=== PATIENT | male | born 1995 | race Caucasian/White ===

== ENCOUNTER 2016-08-11 00:39 | Emergency (ER) | payer OTHER ==
--- NOTE | 2016-08-11 00:42 | EDPHY ---
H & P HPI/ROS: HPI CHIEF COMPLAINT: Nausea vomiting diarrhea HISTORY OF PRESENT ILLNESS: This patient is a very pleasant 20-year-old male, no significant medical history, only surgical history is for wisdom to the [facility] emergency room by private vehicle with his father for sudden onset nausea vomiting and diarrhea. Patient states that he lives in [place] he is in the [employer], he was visiting his parents up in [place]. States around 830 this evening he developed sudden-onset nausea vomiting and watery diarrhea. He tells me that his vomiting and diarrhea is not bloody, it is mostly loose watery, no black stools. He denies any abdominal pain, denies fever. States he had steak and potatoes for dinner tonight as well as a salad his family had the same thing and nobody else is sick. He tells me vomited over 12 times and multiple episodes of watery loose diarrhea.Patient tells me that he initially vomited his steak and potatoes, however now it is yellow secretions no blood. Past Medical History: No significant medical history Past Surgical History: Surgical history skin for wisdom tooth removal Social History: denies daily use of drugs alcohol tobacco products, does admit to occasional alcohol, is enrolled in the [employer] and stationed in [place] Family History: noncontributory ROS REVIEW OF SYSTEMS: A comprehensive 10 point review of systems is otherwise negative aside from elements mentioned in the history of present illness. Exam Constitutional appears well nontoxic, actively vomiting, triage nursing summary reviewed, vital signs reviewed, awake/alert. Eyes normal conjunctivae and sclera, EOMI, PERRLA. HENT normal inspection, atraumatic, moist mucus membranes, no epistaxis, neck supple/ no meningismus, no raccoon eyes. Respiratory clear to auscultation bilaterally, normal breath sounds, no respiratory distress, no wheezing. Cardiovascular rate normal, regular rhythm, no murmur, no edema, distal pulses normal. Gastrointestinal soft, non-tender, no rebound, no guarding, normal bowel sounds, no distension, no pulsatile mass. Genitourinary no CVA tenderness. Musculoskeletal no midline vertebral tenderness, full range of motion, no calf swelling, no tenderness of extremities, no meningismus, good pulses, neurovascularly intact. Skin pink, warm, & dry, no rash, skin atraumatic. Neurologic awake, alert and oriented x 3, AAOx3, moves all 4 extremities equally, motor intact, sensory intact, CN II-XII intact, normal cerebellar, normal vision, normal speech. Psychiatric normal mood/affect. Heme/Lymph/Immune no lymphadenopathy. Differential Diagnosis: includes but is not limited to in a particular, enteritis, gastroenteritis, dehydration, electrolyte abnormality, food-borne illness, viral syndrome, doubt acute appendicitis given no abdominal pain Medical Decision Making: this patient had an IV established he received IV fluid bolus 2 L, IV Zofran for nausea will check abdominal blood work including CBC, LFTs, lipase and electrolytes will re-evaluate him after fluid and Zofran. It is noted his abdomen is soft nontender normal bowel sounds. Re-evaluation: 0128: Re-evaluation at this time this patient is resting comfortably no acute distress. Feels much better after IV Zofran. 2 L normal saline or being infused at this time. No active vomiting after IV Zofran 4 mg. Abdomen remains soft nontender. 0238: re-examination at this time this patient received 4 mg IV Zofran, 2 L normal saline he is feeling much better. Re-examination is abdomen is soft nontender, no guarding or peritoneal signs. He feels much better he is requesting to drink something. We will do a trial of ice chips. 0404: re-examination at this time this patient is resting comfortably feels much better denies any vomiting ambulated well the bathroom urinated fine denies abdominal pain nausea requests to be discharged. He will be discharged with Zofran he understands strict return precautions return if worsening symptoms abdominal pain fever or vomiting. Dad at Bedside understands well. Source: Patient Constitutional: Initial Vital Signs Temperature (C) 36.6 C 08/11/16 00:41 Heart Rate 64 08/11/16 00:41 Respiratory Rate 18 08/11/16 00:41 Blood Pressure 103/51 L 08/11/16 00:41 O2 Sat (%) 96 08/11/16 00:41 O2 Delivery Mode Room Air Allergies/Adverse Reactions: No Known Allergies Allergy (Unverified 08/11/16 00:41) Home Medications: Medication Instructions Recorded Ondansetron HCl [Zofran] 4 mg PO Q4-6PRN PRN #10 tablet 08/11/16 Medical Decision Making - Data Points Laboratory Results: Laboratory Results 08/11/16 00:55 08/11/16 00:55 08/11/16 08/11/16 03:40 00:55 WBC 15.26 H 10^3/uL (3.80-9.50) RBC 6.29 10^6/uL (4.40-6.38) Hgb 19.1 H g/dL (13.7-17.5) Hct 53.0 H % (40.0-51.0) MCV 84.3 fL (81.5-99.8) MCH 30.4 pg (27.9-34.1) MCHC 36.0 g/dL (32.4-36.7) RDW 11.4 L % (11.5-15.2) Plt Count 373 10^3/uL (150-400) MPV 9.0 fL (8.7-11.7) Neut % (Auto) 87.4 H % (39.3-74.2) Lymph % (Auto) 4.8 L % (15.0-45.0) [place] % (Auto) 7.0 % (4.5-13.0) Eos % (Auto) 0.1 L % (0.6-7.6) Baso % (Auto) 0.4 % (0.3-1.7) Nucleat RBC Rel Count 0.0 % (0.0-0.2) Absolute Neuts (auto) 13.33 H 10^3/uL (1.70-6.50) Absolute Lymphs (auto) 0.73 L 10^3/uL (1.00-3.00) Absolute Monos (auto) 1.07 H 10^3/uL (0.30-0.80) Absolute Eos (auto) 0.02 L 10^3/uL (0.03-0.40) Absolute Basos (auto) 0.06 10^3/uL (0.02-0.10) Absolute Nucleated RBC 0.00 10^3/uL (0-0.01) Immature Gran % 0.3 % (0.0-1.1) Immature Gran # 0.05 10^3/uL (0.00-0.10) Sodium 144 mEq/L (134-144) Potassium 4.1 mEq/L (3.5-5.2) Chloride 102 mEq/L (97-110) Carbon Dioxide 20 L mEq/l (22-31) Anion Gap 22 mEq/L (8-16) BUN 16 mg/dL (7-23) Creatinine 1.4 H mg/dL (0.7-1.3) Estimated GFR > 60 Glucose 135 H mg/dL (70-100) Calcium 10.7 H mg/dL (8.5-10.4) Phosphorus 2.6 mg/dL (2.5-4.5) Total Bilirubin 1.4 mg/dL (0.1-1.4) Conjugated Bilirubin 0.4 mg/dL (0.0-0.5) Unconjugated Bilirubin 1.0 mg/dL (0.0-1.1) AST 31 IU/L (17-59) ALT 35 IU/L (21-72) Alkaline Phosphatase 117 IU/L (38-126) Total Protein 9.1 H g/dL (6.3-8.2) Albumin 5.4 H g/dL (3.5-5.0) Lipase 113.0 IU/L (23-300) Urine Color YELLOW Urine Appearance HAZY Urine pH 5.0 (5.0-7.5) Ur Specific [place] 1.019 (1.002-1.030) Urine Protein NEGATIVE (NEGATIVE) Urine Ketones 1+ H (NEGATIVE) Urine Blood NEGATIVE (NEGATIVE) Urine Nitrate NEGATIVE (NEGATIVE) Urine Bilirubin NEGATIVE (NEGATIVE) Urine Urobilinogen NEGATIVE EU (0.2-1.0) Ur Leukocyte Esterase NEGATIVE (NEGATIVE) Ur Culture Indicated? Pending Urine Glucose NEGATIVE (NEGATIVE) Medications Given: Discontinued Medications Sodium Chloride (Ns) 2,000 mls @ 0 mls/hr IV ONCE ONE PRN Reason: Wide Open Stop: 08/11/16 00:53 Last Admin: 08/11/16 01:05 Dose: 2,000 mls Sodium Chloride (Ns) 1,000 mls @ 0 mls/hr IV ONCE ONE PRN Reason: Wide Open Stop: 08/11/16 02:40 Last Admin: 08/11/16 02:41 Dose: 1,000 mls Ondansetron HCl (Zofran) 4 mg IVP EDNOW ONE Stop: 08/11/16 00:51 Last Admin: 08/11/16 01:05 Dose: 4 mg Departure - Departure Disposition: Home, Routine, Self-Care Clinical Impression: Nausea vomiting and diarrhea Condition: Good Instructions: Acute Nausea and Vomiting (ED), Gastroenteritis (ED), Dehydration (ED) Additional Instructions: 1. If you have return of significant vomiting or diarrhea return to the emergency room. 2. If he develops abdominal pain return to the emergency room 3.If he develops fever please return to the ER 4. Please stay well-hydrated drink water or Gatorade 5. ED a bland diet for the next 24-48 hours no spicy fatty greasy foods. Referrals: NONE *PRIMARY CARE P,. [Primary Care Provider] - As per Instructions Prescriptions: Ondansetron HCl [Zofran] 4 mg PO Q4-6PRN PRN #10 tablet PRN Reason: Nausea/Vomiting, Use 1st
[2016-08-11 00:47] VITALS: TEMP 97.9
[2016-08-11] MEDS ORDERED: ONDANSETRON 4 MG/2 ML VIAL IVP ONE (00:50)
[2016-08-11] MEDS ORDERED: NS 1,000 ML IV ONE ×2 (00:50→02:39)
[2016-08-11 00:51] VITALS: RESP 18
[2016-08-11] MEDS ORDERED: NS 2,000 ML IV ONE (00:52)
[2016-08-11 01:08] LABS: % IMMATURE GRANULYOCYTES 0.3 % (0.0-1.1); ABSOLUTE IMMATURE GRANULOCYTES 0.05 10^3/uL (0.00-0.10); ADD DIFF? NO; ADD MORPH? NO; ADD SCAN? NO; ATYPICAL LYMPHOCYTE FLAG 10 (0-99); FRAGMENT RBC FLAG 0 (0-99); HEMOGLOBIN 19.1 g/dL (13.7-17.5); LEFT SHIFT FLG 0 (0-99); LIPEMIA HEMOLYSIS FLAG 90 (0-99); MEAN CELL HEMOGLOBIN 30.4 pg (27.9-34.1); MEAN CELL VOLUME 84.3 fL (81.5-99.8); PLATELET CLUMPS FLAG 0 (0-99); PLATELET COUNT 373 10^3/uL (150-400); RED BLOOD CELL COUNT 6.29 10^6/uL (4.40-6.38); RED CELL DISTRIBUTION WIDTH 11.4 % (11.5-15.2)
[2016-08-11 01:28] LABS: ALANINE AMINOTRANSFERASE 35 IU/L (21-72); ALBUMIN 5.4 g/dL (3.5-5.0); ALKALINE PHOSPHATASE 117 IU/L (38-126); ANION GAP 22 mEq/L (8-16); ASPARTATE AMINOTRANSFERASE 31 IU/L (17-59); BILIRUBIN,TOTAL 1.4 mg/dL (0.1-1.4); BILIRUBIN-CONJUGATED 0.4 mg/dL (0.0-0.5); CALCIUM 10.7 mg/dL (8.5-10.4); CARBON DIOXIDE 20 mEq/l (22-31); CHLORIDE 102 mEq/L (97-110); CREATININE 1.4 mg/dL (0.7-1.3); GLOMERULAR FILTRATION RATE > 60; GLUCOSE 135 mg/dL (70-100); POTASSIUM 4.1 mEq/L (3.5-5.2); SODIUM 144 mEq/L (134-144); TOTAL PROTEIN 9.1 g/dL (6.3-8.2)
[2016-08-11 03:48] LABS: COLOR YELLOW; LEUKOCYTE ESTERASE,URINE NEGATIVE (NEGATIVE); NITRITE,URINE NEGATIVE (NEGATIVE)
[2016-08-11 04:35] VITALS: BP 109/64; PULSE 81; O2SAT 95
== END 2016-08-11 04:34 | disposition home or self-care (01) ==
DX: R11.2 Nausea with vomiting, unspecified (principal); R19.7 Diarrhea, unspecified
CPT/HCPCS: 96374; J2405